=== PATIENT | female | born 1970 | race Caucasian/White ===

== ENCOUNTER 2019-07-05 15:25 | Emergency (ER) | payer OTHER ==
[2019-07-05 15:36] VITALS: BP 133/86; PULSE 83; TEMP 97.9; BMI 23.8
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
[2019-07-05] MEDS ORDERED: IBUPROFEN 600 MG TABLET (FP) PO ONE ×2 (16:25→16:30)
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
== END 2019-07-05 17:35 | disposition home or self-care (01) ==
LOC: JERFT 15:25
DX: R68.84 Jaw pain (principal); M25.512 Pain in left shoulder; S13.4XXA Sprain of ligaments of cervical spine, initial encounter; Y35.891A Legal intervention involving other specified means, law enforcement official injured, initial encounter; V43.32XA Unspecified car occupant injured in collision with other type car in nontraffic accident, initial encounter; Y93.89 Activity, other specified; Y92.410 Unspecified street and highway as the place of occurrence of the external cause; Y99.0 Civilian activity done for income or pay
CPT/HCPCS: 70450-TC; 99282-25

== ENCOUNTER 2023-11-26 04:27 | Day surgery (SDC) | payer BC ==
[2023-11-22 13:36] VITALS: BMI 27.4
[2023-11-26 09:17] VITALS: TEMP 97.8
[2023-11-26 09:56] VITALS: BP 103/67; PULSE 78; RESP 16
== END 2023-11-26 11:13 | disposition home or self-care (01) ==
LOC: JASU-ENDO 04:27
PROVIDERS: ATTEND Internal Medicine Gastroenterology
PROC: 0DB98ZX Excision of Duodenum, Via Natural or Artificial Opening Endoscopic, Diagnostic (ICD-10-PCS; 2023-11-26)
PROC: 0DB78ZX Excision of Stomach, Pylorus, Via Natural or Artificial Opening Endoscopic, Diagnostic (ICD-10-PCS; 2023-11-26)
PROC: 0DB28ZX Excision of Middle Esophagus, Via Natural or Artificial Opening Endoscopic, Diagnostic (ICD-10-PCS; 2023-11-26)
PROC: 0DB48ZX Excision of Esophagogastric Junction, Via Natural or Artificial Opening Endoscopic, Diagnostic (ICD-10-PCS; 2023-11-26)
PROC: 0DJD8ZZ Inspection of Lower Intestinal Tract, Via Natural or Artificial Opening Endoscopic (ICD-10-PCS; principal; 2023-11-26 09:00)
DX: Z12.11 Encounter for screening for malignant neoplasm of colon (principal); K21.00 Gastro-esophageal reflux disease with esophagitis, without bleeding; K44.9 Diaphragmatic hernia without obstruction or gangrene; K29.50 Unspecified chronic gastritis without bleeding
CPT/HCPCS: 81025; 88305-TC; 88342-TC